=== PATIENT | male | born 1945 ===

== ENCOUNTER 2021-02-03 10:25 | Emergency (ER) | payer MEDICARE ==
[~2021-02-03] VITALS: Ht 177.8 cm; Wt 79.0 kg
[2021-02-03] MEDS ORDERED: ASPIRIN ADULT L81 M2 PO (10:50)
[2021-02-03] MEDS ORDERED: CLOPIDOGREL75 MG PO (10:51)
[2021-02-03] MEDS ORDERED: ATORVASTATIN CA80 MG PO (10:51)
[2021-02-03] MEDS ORDERED: CARVEDILOL6.25 MG PO (10:51)
[2021-02-03] MEDS ORDERED: FERROUS SULFAT325 MG PO (10:52)
[2021-02-03] MEDS ORDERED: ISOSORB MONO30 MG PO (10:52)
[2021-02-03] MEDS ORDERED: LISINOPRIL5 MG PO (10:53)
[2021-02-03] MEDS ORDERED: METFORMIN500 M2 PO (10:53)
[2021-02-03] MEDS ORDERED: NOVOLIN 70/30 SC (10:54)
[2021-02-03] MEDS ORDERED: PROTONIX40 M2 PO (10:55)
[2021-02-03] MEDS ORDERED: ULTRAM50 MG PO (12:12)
[2021-02-03 12:18] VITALS: BP 164/92
== END 2021-02-03 12:36 | disposition home or self-care (01) ==
LOC: ED 10:25
DX: S80.02XA Contusion of left knee, initial encounter (principal); S93.402A Sprain of unspecified ligament of left ankle, initial encounter; E11.9 Type 2 diabetes mellitus without complications; I10 Essential (primary) hypertension; E78.5 Hyperlipidemia, unspecified; W01.0XXA Fall on same level from slipping, tripping and stumbling without subsequent striking against object, initial encounter; Y93.89 Activity, other specified; Y92.71 Barn as the place of occurrence of the external cause; Z79.4 Long term (current) use of insulin
CPT/HCPCS: L1830